=== PATIENT | female | born 1995 | race Caucasian/White ===

== ENCOUNTER 2017-05-21 18:29 | Emergency (ER) | payer BC, OTHER ==
[~2017-05-21] VITALS: Ht 167.6 cm; Wt 68.0 kg
[2017-05-21] MEDS ORDERED: BIRTH CONTROL (19:00)
[2017-05-21 19:42] LABS: BASOPHILS % (AUTO) 0 % (0-10); EOSINOPHILS # (AUTO) 0.2 10^3/uL (0.0-0.3); EOSINOPHILS % (AUTO) 2 % (0-10); LYMPHOCYTES # (AUTO) 2.4 X 10^3 (1.0-4.0); LYMPHOCYTES % (AUTO) 29 % (12-44); MEAN CORPUSCULAR HEMOGLOBIN 31 PG (25-34); MEAN CORPUSCULAR HGB CONC 34 G/DL (32-36); MEAN CORPUSCULAR VOLUME 89 FL (80-99); MEAN PLATELET VOLUME 9.2 FL (7.4-10.4); MONOCYTES # (AUTO) 0.7 X 10^3 (0.0-1.0); MONOCYTES % (AUTO) 8 % (0-12); NEUTROPHILS % (AUTO) 61 % (42-75); PLATELET COUNT 300 10^3/uL (130-400); RED BLOOD COUNT 4.61 10^6/uL (4.35-5.85); RED CELL DISTRIBUTION WIDTH 12.6 % (10.0-14.5); WHITE BLOOD COUNT 8.2 10^3/uL (4.3-11.0)
[2017-05-21] MEDS ORDERED: NS IV 1000 ML 1,000 ML IV ONE (19:55)
[2017-05-21 19:56] LABS: BILIRUBIN,URINE NEGATIVE (NEGATIVE); KETONES,URINE NEGATIVE (NEGATIVE); LEUKOCYTE ESTERASE ,URINE 2+ (NEGATIVE); NITRITE,URINE NEGATIVE (NEGATIVE); PH,URINE 8 (5-9); PROTEIN,URINE NEGATIVE (NEGATIVE); UROBILINOGEN,URINE NORMAL (NORMAL)
[2017-05-21 19:57] LABS: CREATININE SERUM 0.86 MG/DL (0.60-1.30); GFR ESTIMATED > 60
[2017-05-21 20:02] LABS: ALANINE AMINOTRANSFERASE 16 U/L (0-55); ALBUMIN 4.1 GM/DL (3.2-4.5); ANION GAP 11 MMOL/L (5-14); ASPARTATE AMINO TRANSFERASE 19 U/L (5-34); BILIRUBIN,TOTAL 0.3 MG/DL (0.1-1.0); BLOOD UREA NITROGEN 9 MG/DL (7-18); BUN/CREATININE RATIO 10; CALCIUM 9.1 MG/DL (8.5-10.1); CARBON DIOXIDE 26 MMOL/L (21-32); CHLORIDE 105 MMOL/L (98-107); GLUCOSE 91 MG/DL (70-105); POTASSIUM 3.6 MMOL/L (3.6-5.0); SODIUM 142 MMOL/L (135-145); TOTAL PROTEIN 7.4 GM/DL (6.4-8.2)
--- NOTE | 2017-05-21 20:22 | ED GU-Female ---
General Chief Complaint: -Female Stated Complaint: LIGHT HEADED Nursing Triage Note: ARRIVED VIA AMB TO ROOM 09. STATES SHE HAD SOME GYNOLOGICAL THINGS DONE BY HER DR ON FRIDAY AND HAS BEEN BLEEDING SINCE. STATES SHE HAS HAD TO CHANGE HER PAD TWO TIMES AND SHE FEELS LIGHT HEADED. CALLED THE DR OFFICE WHO TOLD HER TO COME HERE. Nursing Sepsis Screen: No Definite Risk Source: patient, other (friend) Exam Limitations: no limitations History of Present Illness Time seen by provider: 19:00 Initial Comments 22-year-old female patient presents to the emergency department with complaints of vaginal bleeding. Patient reports having a cauterization of granulation tissue on the cervix by Dr. Dubois on Friday. States he is sober nitrate sticks. Reports yesterday she began having quite a bit of bleeding vaginally. Also reports intermittent bleeding today. States she is to pads yesterday and 2 pads today, but none of the pads were completely filled. Today reports feeling dizzy and lightheaded. Timing/Duration: yesterday, intermittent Severity/Quality: moderate Location: vaginal Radiation: none Activities at Onset: none Modifying Factors: Worsens With Other (worse with standing) Allergies and Home Medications Allergies Coded Allergies: No Known Drug Allergies (Unverified , 05/21/17) Home Medications Ciprofloxacin HCl 500 Mg Tablet, 500 MG PO BID, #6 Ref 0 Prescribed by: TIANA KHAN on 05/21/172027 Metronidazole 250 Mg Tablet, 250 MG PO BID, #14 Ref 0 Prescribed by: TIANA KHAN on 05/21/172024 [ Control] , (Reported) Constitutional: No chills, dizziness, No fever, No malaise EENTM: no symptoms reported Respiratory: No cough, No dyspnea on exertion, No short of breath Cardiovascular: No chest pain, No palpitations, No syncope Gastrointestinal: No abdominal pain, No constipation, No diarrhea, No loss of appetite, No nausea, No vomiting Genitourinary: see HPI, denies burning, discharge, denies dysuria, denies frequency, denies flank pain, pain : No Musculoskeletal: No back pain Skin: no symptoms reported Psychiatric/Neurological: No Symptoms Reported Hematologic/Lymphatic: No Symptoms Reported All Other Systemes Reviewed Negative Unless Noted: Yes (Negative excepted noted.) Past [id number] Hx Patient Social History Alcohol Use: Denies Use Recreational Drug Use: No Smoking Status: Never a Smoker Recent Foreign Travel: No Contact w/Someone Who Travel: No Recent Infectious Disease Expo: No Surgeries History of Surgeries: Yes (DENTAL. Cauterization of the cervix by Dr. Dubois on Friday for granulation tissue.) Surgeries: Abdominal, Adenoidectomy, Tonsillectomy Respiratory History of Respiratory Disorde: No Cardiovascular History of Cardiac Disorders: No Neurological History of Neurological Disord: No Reproductive System : No Hx : 0 Hx Reproductive Disorders: Yes (granulation tissue on the cervix) Sexually Transmitted Disease: No HIV/AIDS: No Genitourinary History of Genitourinary Disor: No Gastrointestinal History of Gastrointestinal Di: No Musculoskeletal History of Musculoskeletal Dis: No Endocrine History of Endocrine Disorders: No HEENT History of HEENT Disorders: No Cancer History of Cancer: No Psychosocial History of Psychiatric Problem: No Reviewed Nursing Assessment Reviewed/Agree w Nursing PMH: Yes Family Medical History Significant Family History: No Pertinent Family Hx Physical Exam Vital Signs Vital Sign - Last 12Hours 05/21/17 05/21/17 18:35 21:31 Temp 98.0 Pulse 18 Resp 18 B/P (MAP) 175/92 Pulse Ox 99 Capillary Refill : Less Than 3 Seconds General Appearance: WD/WN, no apparent distress HEENT: PERRL/EOMI, pharynx normal Neck: supple, normal inspection Cardiovascular: normal peripheral pulses, regular rate, rhythm, no edema, no murmur Respiratory: lungs clear, normal breath sounds, no respiratory distress, no accessory muscle use Gastrointestinal: normal bowel sounds, non tender, soft, no organomegaly Pelvic: normal external exam, no cerv. motion tender, no masses, other (no evidence of blood in the vaginal vault. cervix friable surrounding the cervical os. the cervix does bleed slightly when the cultures were obtained. ) Back: normal inspection, no CVA tenderness Extremities: no pedal edema, no calf tenderness, normal capillary refill Neurologic/Psychiatric: alert, normal mood/affect, oriented x 3 Skin: normal color, warm/dry Progress/Results/Core Measures Results/Orders Lab Results Laboratory Tests Test 05/21/17 19:33 05/21/17 19:44 05/21/17 19:50 Range/Units White Blood Count 8.2 4.3-11.0 10^3/uL Red Blood Count 4.61 4.35-5.85 10^6/uL Hemoglobin 14.1 11.5-16.0 G/DL Hematocrit 41 35-52 % Mean Corpuscular Volume 89 80-99 FL Mean Corpuscular Hemoglobin 31 25-34 PG Mean Corpuscular Hemoglobin Concent 34 32-36 G/DL Red Cell Distribution Width 12.6 10.0-14.5 % Platelet Count 300 130-400 10^3/uL Mean Platelet Volume 9.2 7.4-10.4 FL Neutrophils (%) (Auto) 61 42-75 % Lymphocytes (%) (Auto) 29 12-44 % Monocytes (%) (Auto) 8 0-12 % Eosinophils (%) (Auto) 2 0-10 % Basophils (%) (Auto) 0 0-10 % Neutrophils # (Auto) 5.0 1.8-7.8 X 10^3 Lymphocytes # (Auto) 2.4 1.0-4.0 X 10^3 Monocytes # (Auto) 0.7 0.0-1.0 X 10^3 Eosinophils # (Auto) 0.2 0.0-0.3 10^3/uL Basophils # (Auto) 0.0 0.0-0.1 10^3/uL Sodium Level 142 135-145 MMOL/L Potassium Level 3.6 3.6-5.0 MMOL/L Chloride Level 105 98-107 MMOL/L Carbon Dioxide Level 26 21-32 MMOL/L Anion Gap 11 5-14 MMOL/L Blood Urea Nitrogen 9 7-18 MG/DL Creatinine 0.86 0.60-1.30 MG/DL Estimat Glomerular Filtration Rate > 60 BUN/Creatinine Ratio 10 Glucose Level 91 70-105 MG/DL Calcium Level 9.1 8.5-10.1 MG/DL Total Bilirubin 0.3 0.1-1.0 MG/DL Aspartate Amino Transf (AST/SGOT) 19 5-34 U/L Alanine Aminotransferase (ALT/SGPT) 16 0-55 U/L Alkaline Phosphatase 49 40-136 U/L Total Protein 7.4 6.4-8.2 GM/DL Albumin 4.1 3.2-4.5 GM/DL Serum Test, Qualitative NEGATIVE NEGATIVE Urine Color YELLOW Urine Clarity CLEAR Urine pH 8 5-9 Urine Specific [place] 1.010 L 1.016-1.022 Urine Protein NEGATIVE NEGATIVE Urine Glucose (UA) NEGATIVE NEGATIVE Urine Ketones NEGATIVE NEGATIVE Urine Nitrite NEGATIVE NEGATIVE Urine Bilirubin NEGATIVE NEGATIVE Urine Urobilinogen NORMAL NORMAL MG/DL Urine Leukocyte Esterase 2+ H NEGATIVE Urine RBC (Auto) 4+ H NEGATIVE Urine RBC 5-10 H /HPF Urine WBC 5-10 H /HPF Urine Squamous Epithelial Cells 5-10 /HPF Urine Crystals NONE /LPF Urine Bacteria FEW H /HPF Urine Casts NONE /LPF Urine Mucus NEGATIVE /LPF Urine Culture Indicated YES Micro Results Microbiology 05/21/17 Genital Culture - Preliminary, Resulted Gardnerella Vaginalis 05/21/17 Wet Prep - Final, Resulted 05/21/17 Urine Culture - Final, Complete My Orders Orders - TIANA KHAN Cbc With Automated Diff (05/21/17 19:22) Comprehensive Metabolic Panel (05/21/17 19:22) Hcg,Qualitative Serum (05/21/17 19:22) Ua Culture If Indicated (05/21/17 19:22) Saline Lock/Iv-Start (05/21/17 19:22) Ns Iv 1000 Ml (Sodium Chloride 0.9%) (05/21/17 19:55) Wet Prep (05/21/17 19:56) Neisseria Gonorrhea Dna (05/21/17 19:56) Chlamydia Dna (05/21/17 19:56) Genital Culture (05/21/17 19:56) Urine Culture (05/21/17 19:44) Vital Signs/I&O Blood Pressure Mean: 119 Departure Communication (Admissions) Progress Notes laboratory findings discussed with the patient. plan for dsch to home with f/u as an outpatient with dr. dubois for recheck. Impression Impression: Primary Impression: BV (bacterial vaginosis) Additional Impression: Urinary tract infection Qualified Codes: N39.0 - Urinary tract infection, site not specified Disposition: HOME, SELF-CARE Condition: Improved Departure-Patient Inst. Decision time for Depature: 20:25 Referrals: NO,LOCAL PHYSICIAN (PCP) Primary Care Physician BRITTANEY DUBOIS DO Patient Instructions: Bacterial Vaginosis (DC) Add. Discharge Instructions: All discharge instructions reviewed with patient and/or family. Voiced understanding. Medications as instructed. Tylenol Extra Strength over-the- counter as directed for pain. Ibuprofen 800 mg by mouth every 8 hours as needed for pain. Drink plenty of fluids. Continue instructions and medications as per Dr. Dubois. Follow-up with Dr. Dubois as an outpatient for recheck. Return to the emergency department for worsened symptoms or any other concerns. Scripts Ciprofloxacin HCl (Ciprofloxacin HCl) 500 Mg Tablet 500 MG PO BID, #6 TAB 0 Refills Prov: TIANA KHAN 05/21/17 Metronidazole (Metronidazole) 250 Mg Tablet 250 MG PO BID, #14 TAB 0 Refills Prov: TIANA KHAN 05/21/17 Work/School Note: Work Release Form Date Seen in the Emergency Department: May 21, 2017 Return to Work: May 23, 2017 TIANA KHAN May 21, 2017 20:21
[2017-05-21] MEDS ORDERED: METR250T32 PO (20:25)
[2017-05-21] MEDS ORDERED: CIPR500T4 PO (20:28)
[2017-05-21 21:31] VITALS: BP 137/84
== END 2017-05-21 21:31 | disposition home or self-care (01) ==
LOC: ER 18:33
DX: N76.0 Acute vaginitis (principal); N39.0 Urinary tract infection, site not specified; Z90.89 Acquired absence of other organs; Z98.890 Other specified postprocedural states
CPT/HCPCS: 36415; 80053; 81000; 84703; 85025; 87070; 87088; 87210; 87491; 87591; 96360